=== PATIENT | female | born 1950 | race Caucasian/White ===

== ENCOUNTER → 2017-03-22 | Outpatient (CLI) | payer BC ==
[~2017-03-22] MED LIST: ACTOS; ACTOS30 MG PO; ALBUTEROL17 GM INH; ALLOPURINOL300 MG PO; ALPRAZOLAM ER1 MG PO; AMBIEN10 MG PO; ANTIVERT PO; ASPIRIN81 M1; ASPIRIN81 M1 PO; ASPIRINEC PO; ATORVASTATIN CA80 MG PO; BENICAR20 MG PO; CELEBREX PO; CELEXA PO; CHOLESTEROL MED; CLARITIN5 MG PO; CLEOCIN150 MG PO; COLACE PO; COMBIVENT U/D3 M1 INH; CRESTOR; CRESTOR PO; CYMBALTA PO; DIAZEPAM PO; FAMOTIDINE20 MG PO; FARXIGA10 MG PO; FENOGLIDE40 MG PO; FISH OIL 1,2001 CAP PO; FUROSEMIDE40 MG PO; GABAPENTIN300 M2 PO; GLUCOPHAGE500 MG PO; GLUCOTROL; GLUCOTROL PO; HYDROCODON-ACE1 EAC7 PO; KCL PO; KLOR-CON PO; LASIX; LASIX PO; LEVEMIR SQ; LEVEMIR100 UNITS/; LEVOTHROID150 MCG PO; LEVOTHROID175 MCG PO; LEVOTHYROXINE100 MCG PO; LOPID600 MG PO; MELOXICAM15 MG PO; METOPROLOL TAR25 MG PO; MICRO-K PO; MOBIC; MOBIC PO; MULTI-VIT/MIN P1 TAB PO; MYLICON40 MG/0.1 PO; PHENERGAN12.5 MG DOB; PHENERGAN25 MG PO; PLAVIX PO; PRAVACHOL PO; PREDNISONE PO; PRILOSEC PO; PYRIDIUM PO; SYMBICORT INH; SYNTHROID; SYNTHROID PO; TOPROL XL PO; TOUJEO SOL300 UNIT/1; TRAMADOL HCL50 M1 PO; ULTRAM; VICTOZA0.6 MG/0.1; VICTOZA0.6 MG/0.1 SQ; VICTOZA0.6 MG/0.1 SUBQ; VIT B-12 PO; VITAMIN B 12 DAILY; VITAMIN D1000 UNI1 PO; VITAMIN D1000 UNIT; VOLTAREN75 MG PO; ZAROXOLYN5 MG PO; ZYLOPRIM PO
--- NOTE | ~2017-03-22 | US5 ---
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 Referring Physician: Grazyna Kaiser A.P.R.N. Ordering Physician: Grazyna Kaiser A.P.R.N. Primary Care Physician: Dwayne Waite M.D. MEDICAL IMAGING REPORT This report is preliminary unless electronic signature is present. EXAM Right upper quadrant abdominal ultrasound INDICATION Hemochromatosis. PROCEDURE Escamilla-scale and Doppler imaging right upper quadrant of the abdomen. COMPARISON None. FINDINGS Visualized portions of the pancreas are unremarkable. There is a 3.9 cm cyst in the liver adjacent to the portal vein. Right kidney measures 8.5 cm. No hydronephrosis. Common duct measures 4 mm. IMPRESSION 1. There is a simple cyst that measures up to 3.9 cm in the central liver. No worrisome liver lesion. 2. Previous cholecystectomy. Dictated by... Tyrell Menchaca M.D. THIS IS AN ELECTRONICALLY VERIFIED REPORT Tyrell Menchaca M.D. at 03/25/2017 7:43 AM SCOT/yesika TD: 03/22/2017 13:34 JOB #: [id number] [facility] A Service [facility] RADIOLOGY TEXT RESULTS PATIENT: KENNY ALONSO LOCATION: [facility] : 49 UNIT #: [id number] AGE: [address]: Grazyna Kaiser SEX: F ORDER DR: MEDICAL IMAGING REPORT Page 1 of 1
== END | disposition home or self-care (01) ==
LOC: SGUS 07:52
DX: R93.2 Abnormal findings on diagnostic imaging of liver and biliary tract (principal); E83.119 Hemochromatosis, unspecified; K76.89 Other specified diseases of liver; Z90.49 Acquired absence of other specified parts of digestive tract
CPT/HCPCS: 76700

== ENCOUNTER 2017-07-01 15:17 | Emergency (ER) | payer OTHER ==
--- NOTE | ~2017-07-01 | CR172 ---
[facility] A Service of [facility] RADIOLOGY TEXT RESULTS PATIENT: KENNY ALONSO LOCATION: SED : 48 UNIT #: [id number] AGE: [address]: HOLLY SHANE SEX: F ORDER DR: [id number] [place] [id number] E MR#: [id number] Acc #: [id number] NAME: KENNY ALONSO. : 1950 SEX: F STUDY DATE/TIME: 07/01/2017 16:05 UNIT: SED ROOM: STUDY DESCRIPTION: CR Knee 3 Views Lt Attending Physician: Holly Shane Ordering Physician: Holly Shane Primary Care Physician: Dwayne Waite M.D. MEDICAL IMAGING REPORT This report is preliminary unless electronic signature is present. EXAM 3 views left knee. DATE: 07/01/2017 HISTORY Left knee pain after falling yesterday. COMPARISON None. FINDINGS Advanced degenerative changes are demonstrated within the left knee. There is severe narrowing at the patellofemoral compartment with marked articular osteophyte formation. There is moderately advanced diminished medial compartment joint space narrowing. Prominent marginal osteophytes are seen in the lateral and medial compartments. There is a small suprapatellar joint effusion. No acute fracture or joint dislocation is identified. IMPRESSION 1. Advanced degenerative changes of the left knee, greatest in the patellofemoral compartment and medial compartments. 2. Small suprapatellar joint effusion. 3. No evidence of acute fracture or dislocation. Dictated by... Keeley Corley M.D. THIS IS AN ELECTRONICALLY VERIFIED REPORT Keeley Corley M.D. at 07/02/2017 8:56 AM [facility] A Service of [facility] RADIOLOGY TEXT RESULTS PATIENT: KENNY ALONSO LOCATION: SED : 48 UNIT #: [id number] AGE: [address]: HOLLY SHANE SEX: F ORDER DR: ZENY/terry TD: 07/02/2017 03:01 JOB #: [id number] MEDICAL IMAGING REPORT Page 1 of 1
--- NOTE | ~2017-07-01 | CR150 ---
[facility] A Service of [facility] RADIOLOGY TEXT RESULTS PATIENT: KENNY ALONSO LOCATION: SED : 48 UNIT #: [id number] AGE: [address]: HOLLY SHANE SEX: F ORDER DR: [id number] [place] [id number] E MR#: [id number] Acc #: [id number] NAME: KENNY ALONSO : 1950 SEX: F STUDY DATE/TIME: 07/01/2017 16:05 UNIT: SED ROOM: STUDY DESCRIPTION: CR Hip Min 2 Views Lt Attending Physician: Holly Shane Ordering Physician: Holly Shane Primary Care Physician: Dwayne Waite M.D. MEDICAL IMAGING REPORT This report is preliminary unless electronic signature is present. EXAMINATION AP pelvis with frog view left hip (2 images). DATE 07/01/2017 HISTORY Left hip pain after falling yesterday. COMPARISON None. FINDINGS No pelvic fracture, hip fracture or hip dislocation is seen. Hip joint spaces appear well preserved without significant osteoarthritic change. Presumed gastric band port in the left lower quadrant of the abdomen. Facet arthropathy on the right at L4-5 and bilateral left greater than right at L5-S1. IMPRESSION 1. No acute abnormality of the pelvis or left hip. Left hip joint space appears well preserved without significant osteoarthritic change. 2. Lower lumbar facet arthropathy. Dictated by... Keeley Corley M.D. THIS IS AN ELECTRONICALLY VERIFIED REPORT Keeley Corley M.D. at 07/02/2017 8:56 AM [facility] A Service [facility] RADIOLOGY TEXT RESULTS PATIENT: KENNY ALONSO LOCATION: SED : 48 UNIT #: [id number] AGE: [address]: HOLLY SHANE SEX: F ORDER DR: TD: 07/02/2017 02:58 JOB #: [id number] MEDICAL IMAGING REPORT Page 1 of 1
[~2017-07-01 15:17] MED LIST changes: -TOUJEO SOL300 UNIT/1
[2017-07-01] MEDS ORDERED: TOUJEO SOL300 UNIT/1 (15:27)
== END 2017-07-01 17:03 | disposition home or self-care (01) ==
LOC: SED 15:17
DX: S70.02XA Contusion of left hip, initial encounter (principal); S80.02XA Contusion of left knee, initial encounter; Z88.1 Allergy status to other antibiotic agents; Z91.040 Latex allergy status; Z88.5 Allergy status to narcotic agent; Z88.2 Allergy status to sulfonamides; Z79.899 Other long term (current) drug therapy; Z88.8 Allergy status to other drugs, medicaments and biological substances; W01.10XA Fall on same level from slipping, tripping and stumbling with subsequent striking against unspecified object, initial encounter; Y92.009 Unspecified place in unspecified non-institutional (private) residence as the place of occurrence of the external cause
CPT/HCPCS: 29530; 73502; 73562; 99283